=== PATIENT | male | born 1965 | race Two or more races ===

== ENCOUNTER 2020-12-30 06:45 | Day surgery (SDC) | payer OTHER | END 2020-12-30 11:19 | disposition home or self-care (01) | LOC: AMB-ENDOS 06:45 | PROVIDERS: ATTEND Colon & Rectal Surgery | DX: D12.2 Benign neoplasm of ascending colon (principal); D12.4 Benign neoplasm of descending colon; K64.2 Third degree hemorrhoids; Z12.11 Encounter for screening for malignant neoplasm of colon; Z20.822 Contact with and (suspected) exposure to COVID-19 ==

== ENCOUNTER 2024-08-22 14:45 | Emergency (ER) | payer OTHER ==
[~2024-08-22] VITALS: Ht 177.8 cm; Wt 74.8 kg
[2024-08-22] MEDS ORDERED: SYNTHROID100 MCG (15:02)
[2024-08-22] MEDS ORDERED: INDERAL XL80 MG (15:03)
[2024-08-22] MEDS ORDERED: KETOROLAC TROMETHAMINE 30 MG VIAL IV ONE (15:45)
[2024-08-22] MEDS ORDERED: ONDANSETRON HCL 2 MG/ML VIAL IV ONE (15:45)
[2024-08-22] MEDS ORDERED: 0.9 % SODIUM CHLORIDE 500 ML IV ONE (15:45)
[2024-08-22] MEDS ORDERED: HYOSCYAMINE SULFATE 0.125 MG TAB.SUBL SL ONE (15:45)
[2024-08-22 16:25] LABS: HEMATOCRIT 40.7 % (39.0-48.0); HEMOGLOBIN 14.1 g/dL (13-16.00); MEAN CELL VOLUME 94.5 fL (80.0-100.00); MEAN CORPUSCULAR HEMOGLOBIN 32.7 pg (27.00-32.0); MEAN CORPUSCULAR HGB CONC 34.7 g/dl (32.0-36.0); PLATELET COUNT 172 K/uL (150-450); RED CELL DISTRIBUTION WIDTH 12.7 % (11.5-14.5)
[2024-08-22 16:37] LABS: ALBUMIN 3.5 gm/dL (3.4-5.0); BILIRUBIN TOTAL 0.68 mg/dL (0.3-1.2); CREATININE SERUM 0.96 mg/dL (0.70-1.30); GFR 79.9; GLOBULINA 3.1 G/DL (2.4-3.5); POTASSIUM 3.78 mEq/L (3.5-5.1); TOTAL PROTEIN 6.6 gm/dL (6.4-8.2)
[2024-08-22 17:28] LABS: PH,URINE 7.5 (5.0-8.0); URINE APPEARANCE Clear; URINE BILIRRUBIN Negative (NEGATIVE); URINE BLOOD NHT; URINE COLOR Yellow; URINE GLUCOSE Negative (NEGATIVE); URINE KETONE 15 (NEGATIVE); URINE LEUKOCYTE Negative; URINE NITRATE Negative; URINE PROTEIN Negative (NEGATIVE); URINE UROBILINOGEN 0.2 E.U./dl
[2024-08-22 17:29] LABS: URINE BACTERIA 8.8 uL (0.0-1933); URINE EPITHELIAL CELLS 2.1 uL (0.0-38.8); URINE RBC 63.9 uL (0.0-20.8); URINE WBC 12.4 uL (0.0-23.2)
[2024-08-22 18:38] LABS: URINE CAST 0.15 uL (0.0-1.40)
[2024-08-22] MEDS ORDERED: DICLOFENAC SODI75 MG PO (19:08)
[2024-08-22] MEDS ORDERED: TAMS0.4C PO (19:08)
[2024-08-22] MEDS ORDERED: DUI500 PO (19:21)
== END 2024-08-22 19:51 ==
LOC: ER 14:47
PROVIDERS: Nurse Practitioner Family
DX: N20.9 Urinary calculus, unspecified (principal); R10.9 Unspecified abdominal pain